=== PATIENT | male | born 1945 | race Caucasian/White ===

== ENCOUNTER 2024-10-12 12:47 | Emergency (ER) | payer SELFPAY ==
[~2024-10-12] VITALS: Ht 167.6 cm; Wt 74.0 kg
[2024-10-12 12:52] VITALS: BP 129/77; PULSE 85; RESP 14; TEMP 36.4; O2SAT 99
== END 2024-10-12 13:54 | disposition left against medical advice (07) ==
LOC: ER 12:47
DX: M54.9 Dorsalgia, unspecified (principal); E11.9 Type 2 diabetes mellitus without complications; E78.00 Pure hypercholesterolemia, unspecified; I10 Essential (primary) hypertension; Y08.89XA Assault by other specified means, initial encounter; Y93.89 Activity, other specified; Y92.89 Other specified places as the place of occurrence of the external cause; Y99.8 Other external cause status
CPT/HCPCS: 99283